=== PATIENT | male | born 1995 ===

== ENCOUNTER 2018-06-07 09:01 | Emergency (ER) | payer BC ==
[2018-06-07 09:08] VITALS: O2SAT 99
[2018-06-07] MEDS ORDERED: Sodium Chloride 0.9% 1,000 ML IV SCH (09:30)
--- NOTE | 2018-06-07 09:38 | ED PDOC ---
HPI: Chest Pain Time Seen by Provider: 06/07/18 09:12 Chief Complaint (Nursing): Chest Pain Chief Complaint (Provider): Chest Pain History Per: Patient History/Exam Limitations: no limitations Onset/Duration Of Symptoms: Days (x1 day) Current Symptoms Are (Timing): Still Present Exacerbating Factors: Movement Additional Complaint(s): Jae Hawk is a 22 year old male with no past medical history, who presents to the emergency department complaining of chest pain associated with muscle soreness, vomiting, chills and subjective fever, onset was yesterday morning. Patient states that he felt muscle soreness in the morning yesterday and felt warm throughout the day. Patient only had a bowl of soup that he vomited at 11pm last night. He states he felt better after but at around 4am today morning he woke up with some chest pain that was worse with deep breaths and movement. Patient denies having any sick contact, trouble urinating, difficulty breathing, cough, back pain, sore throat or photophobia. His last doctor visit was in July of 2017. Patient has not had his flu shot. He states he currently has a frontal headache. PMD: in [place] Past Medical History Reviewed: Historical Data, Nursing Documentation, Vital Signs Vital Signs: Last Vital Signs Temp 99.4 F 06/07/18 09:08 Pulse 89 06/07/18 09:12 Resp 12 06/07/18 09:12 BP 123/77 06/07/18 09:12 Pulse Ox 99 06/07/18 09:12 - Medical History PMH: No Chronic Diseases Denies: Chronic Kidney Disease - Surgical History Surgical History: No Surg Hx - Family History Family History: States: Unknown Family Hx - Immunization History Hx Influenza Vaccination: No - Home Medications Home Medications: Ambulatory Orders Medication Instructions Recorded Famotidine [Pepcid] 20 mg PO BID #28 tab 06/07/18 Naproxen [Naprosyn] 500 mg PO BID PRN #20 tablet 06/07/18 Ondansetron [Zofran] 4 mg PO Q8H #9 tab 06/07/18 - Allergies Allergies/Adverse Reactions: Allergies Allergy/AdvReac Type Severity Reaction Status Date / Time No Known Allergies Allergy Verified 06/07/18 09:12 Review of Systems ROS Statement: Except As Marked, All Systems Reviewed And Found Negative Constitutional: Positive for: Fever (subjective), Chills, Weakness (muscle s oreness) Cardiovascular: Positive for: Chest Pain Respiratory: Negative for: Cough, Other (dyspnea ) Gastrointestinal: Positive for: Nausea, Vomiting Genitourinary Male: Negative for: Dysuria Neurological: Positive for: Headache (frontal) Physical Exam - Reviewed Nursing Documentation Reviewed: Yes Vital Signs Reviewed: Yes - Physical Exam Appears: Positive for: Non-toxic, No Acute Distress Head Exam: Positive for: ATRAUMATIC, NORMOCEPHALIC Skin: Positive for: Normal Color, Warm, Dry Eye Exam: Positive for: Normal appearance, EOMI, PERRL ENT: Positive for: Normal ENT Inspection Neck: Positive for: Normal, Painless ROM, Supple Cardiovascular/Chest: Positive for: Regular Rate, Rhythm. Negative for: Chest Non Tender (diffuse tenderness to palpation of chest wall), Murmur Respiratory: Positive for: Normal Breath Sounds. Negative for: Respiratory Distress Gastrointestinal/Abdominal: Positive for: Tenderness (epigastric tenderness) Back: Positive for: Normal Inspection. Negative for: L CVA Tenderness, R CVA Tenderness, Vertebral Tenderness Neurologic/Psych: Positive for: Alert, Oriented - Laboratory Results Result Diagrams: 06/07/18 09:53 06/07/18 09:53 - ECG O2 Sat by Pulse Oximetry: 99 (RA) Pulse Ox Interpretation: Normal Medical Decision Making Medical Decision Making: Time: 921 Impression: influenza Plan: --EKG --BMP --Troponin I --Influenza A B --CBC with differential --Chest xray 1 view --Pepcid 20 mg IVP --Toradol 30 mg IVP --Sodium chloride 1,000 ml --Zofran 4 mg IVP --electronic device monitor --Saline lock Scribe Attestation: Documented by Leodan Rojas, acting as a scribe for Millicent Bolanos MD. Provider Scribe Attestation: All medical record entries made by the Scribe were at my direction and personally dictated by me. I have reviewed the chart and agree that the record accurately reflects my personal performance of the history, physical exam, medical decision making, and the department course for this patient. I have also personally directed, reviewed, and agree with the discharge instructions and disposition. Disposition - Clinical Impression Clinical Impression: Chest wall pain, Viral syndrome - Patient ED Disposition Is Patient to be Admitted: No Doctor Will See Patient In The: Office Counseled Patient/Family Regarding: Diagnosis, Need For Followup, Rx Given - Disposition Disposition: Routine/Home Disposition Time: 10:30 Condition: IMPROVED Prescriptions: Famotidine [Pepcid] 20 mg PO BID #28 tab Naproxen [Naprosyn] 500 mg PO BID PRN #20 tablet PRN Reason: Pain, Moderate (4-7) Ondansetron [Zofran] 4 mg PO Q8H #9 tab Instructions: Viral Syndrome (DC) Forms: [employer] Connect (Chinese), [facility] ED School/Work Excuse - POA Present On Arrival: None
[2018-06-07 09:58] LABS: BASO % 0.2 % (0.0-2.0); HEMOGLOBIN 13.8 g/dL (12.0-18.0); MEAN CELL VOLUME 87.8 fl (80.0-94.0); MEAN CORPUSCULAR HEMOGLOBIN 29.9 pg (27.0-31.0); MEAN PLATELET VOLUME 7.5 fl (7.2-11.7); MONO % 9.5 % (0.0-10.0); NEUT # 8.9 K/uL (1.8-7.0); NEUT % 81.3 % (50.0-75.0); PLATELET COUNT 195 K/uL (130-400); RBC 4.62 Mil/uL (4.40-5.90)
[2018-06-07 10:09] LABS: BLOOD UREA NITROGEN 12 mg/dl (9-20); CALCIUM 9.2 mg/dL (8.4-10.2); GFR NON-AFRICAN AMERICAN > 60
[2018-06-07 11:06] LABS: LYMPHOCYTE 13 % (20-50); MONOCYTE 5 % (0-10); NEUTROPHIL 82 % (42-75); TOTAL CELLS COUNTED 100
[2018-06-07 11:07] VITALS: BP 119/52; PULSE 85; RESP 17; TEMP 99.1
[2018-06-07 11:07] LABS: PLATELET ESTIMATE NORMAL (NORMAL)
[2018-06-07 11:08] LABS: ANISOCYTOSIS SLIGHT; OVALOCYTES SLIGHT
[2018-06-07 11:09] LABS: LARGE PLATELETS PRESENT; TEARDROP CELLS SLIGHT
--- NOTE | 2018-06-07 12:28 | RAD ---
Date of service: 06/07/2018 PROCEDURE: CHEST RADIOGRAPH, 1 VIEW HISTORY: Chest pain and nausea. COMPARISON: None available. FINDINGS: LUNGS: Clear. PLEURA: No pneumothorax or pleural fluid seen. CARDIOVASCULAR: No aortic atherosclerotic calcification present. Normal. OSSEOUS STRUCTURES: No significant abnormalities. VISUALIZED UPPER ABDOMEN: Normal. OTHER FINDINGS: None. IMPRESSION: No active disease.
--- NOTE | 2018-06-08 10:18 | CARD ---
APPROVED REPORT Date of service: 06/07/2018 EKG Measurement Heart [id number] <Conclusion> Normal sinus rhythm Normal ECG
== END 2018-06-07 11:12 | disposition home or self-care (01) ==
LOC: H.ER 09:01
DX: J11.1 Influenza due to unidentified influenza virus with other respiratory manifestations (principal); R07.9 Chest pain, unspecified; Z79.899 Other long term (current) drug therapy
CPT/HCPCS: 71045; 80048; 84484; 85025; 87804; 93005; 96361; 96374; 96375; 99285; J1885; J2405; J7030